=== PATIENT | male | born 1955 | race Caucasian/White ===

== ENCOUNTER → 2018-05-01 15:14 | Outpatient (REF) | payer MEDICARE, SELFPAY ==
[2018-05-01 21:55] LABS: HCT 39.1 % (40.0-50.0); HGB 12.4 g/dL (13.5-17.5); Mean Corp. HGB Concentration 31.7 g/dL (32.0-36.0); Mean Corpuscular Hemoglobin 29.3 pg (27.0-33.0); Mean Corpuscular Volume 92.4 fL (80-95); Mean Platelet Volume 9.9 fL (8.0-11.0); Platelet Count 251 x1000/uL (130-400); RBC 4.23 m/cumm (4.50-6.00); RBC Distribution Width 13.6 % (11.8-14.1); White Blood Cell Count 10.24 k/cumm (4.4-10.8)
[2018-05-01 22:05] LABS: Anion Gap 10.9 mmol/L (3-11); BUN 24 mg/dL (7-18); CO2 24.1 mmol/L (21.0-32.0); CREATININE 1.89 mg/dL (0.70-1.30); Calcium 8.8 mg/dL (8.5-10.1); Chloride 99 mmol/L (98-107); Estimated GFR 35.97 (mL/min/1.73m2); Glucose 214 mg/dL (70-100); Potassium 4.3 mmol/L (3.5-5.1); Sodium 134 mmol/L (136-145); Uric Acid 9.3 mg/dL (3.5-7.2)
== END ==
LOC: NCHCN 15:14
PROVIDERS: PCP Physician Assistant Medical; Visit Provider Specialist/Technologist Athletic Trainer
DX: N18.4 Chronic kidney disease, stage 4 (severe) (principal); M79.676 Pain in unspecified toe(s)
CPT/HCPCS: 80048; 85027; 84550

== ENCOUNTER 2018-06-06 01:09 | Outpatient (CLI) | payer MEDICARE, SELFPAY ==
--- NOTE | 2018-06-06 14:00 | MERGE_ITS ---
*[facility]* *[facility]* [address] [place] [address] Date of study: 06/06/2018 Transthoracic Echocardiography M-mode, complete 2D, complete spectral Doppler, and color Doppler *STUDY CONCLUSIONS* Summary: 1. Procedure narrative: Image quality was poor. Intravenous contrast (Definity) was administered . 2. Left ventricle: The cavity size was normal. Systolic function was hyperdynamic. The estimated ejection fraction was 65-70%. There was no evidence of elevated ventricular filling pressure by Doppler parameters. No evidence of thrombus. 3. Atrial septum: No defect or patent foramen ovale was identified. 4. Pulmonary arteries: Systolic pressure could not be accurately estimated. 5. Inferior vena cava: Poorly visualized. *PATIENT PRESENTATION* Height: 185.4cm ((73in) ) S/D Pressure: 86 / 60 Weight: 176kg ((387.2lb) ) BSA: 3.1m^2 Test start time: 02:00 PM. Test stop time: 03:25 PM. PERFORMING Unknown PERFORMING Nv Hayes Hsieh REFERRING Hayes Cartagena SHIPPING AND RECEIVING Danielle Guillermo *PROCEDURE DATA* Procedure information: This study was interpreted by [facility]. Pertinent images and digital data are archived for permanent storage and are available for subsequent review. No prior study was available for comparison. Study status: Routine. Transthoracic echocardiography. M-mode, complete 2D, complete spectral Doppler, and color Doppler. A Transthoracic Echocardiogram was performed. Scanning was performed from the parasternal, apical, subcostal, and suprasternal notch acoustic windows. Images were obtained using an [employer] SC 2000 cardiac ultrasound machine. Image quality was poor. Intravenous contrast (Definity) was administered by [facility] to enhance delineation of left ventricular endocardial borders. Prior to administration at least two (2) contiguous segments of the left ventricular border were not visualized. Definity amount administered was a total of 3ml. One vial was used. Study completion: The patient tolerated the procedure well. History: PMH: Hypotension, syncope. *CARDIAC ANATOMY* Left ventricle: The cavity size was normal. Systolic function was hyperdynamic. The estimated ejection fraction was 65-70%. No evidence of thrombus. The tissue Doppler parameters were abnormal. Diastolic parameters were normal for age. There was no evidence of elevated ventricular filling pressure by Doppler parameters. Aortic valve: Doppler: VTI ratio of LVOT to aortic valve: 0.72. Valve area (VTI): 2.4cm^2. Indexed valve area (VTI): 0.8cm^2/m^2. Peak velocity ratio of LVOT to aortic valve: 0.75. Valve area (Vmax): 2.5cm^2. Indexed valve area (Vmax): 0.8cm^2/m^2. Mean velocity ratio of LVOT to aortic valve: 0.65. Valve area (Vmean): 2.2cm^2. Indexed valve area (Vmean): 0.7cm^2/m^2. Mean gradient (S): 1.6mm Hg. Peak gradient (S): 2.9mm Hg. Mitral valve: Doppler: There was no evidence for stenosis. There was no significant regurgitation. Valve area by pressure half-time: 2.2cm^2. Indexed valve area by pressure half-time: 0.7cm^2/m^2. Left atrium: The atrium was normal in size. Atrial septum: No defect or patent foramen ovale was identified. Right ventricle: Poorly visualized. Pulmonic valve: Doppler: There was no evidence for stenosis. There was no significant regurgitation. Peak gradient (S): 4mm Hg. Tricuspid valve: Doppler: There was no significant regurgitation. Pulmonary artery: Poorly visualized. Systolic pressure could not be accurately estimated. Right atrium: Poorly visualized. Pericardium: There was no pericardial effusion. Systemic veins: Inferior vena cava: Poorly visualized. Measurements Left ventricle Value Reference LV ID, ED, PLAX 4.5 cm 3.5 - 6.0 LV ID, ES, PLAX 3.0 cm 2.1 - 4.0 LV PW thickness, ED, PLAX 1.3 cm --------- LV e', lateral 0.055 m/sec --------- LV E/e', lateral 7 --------- LV e', medial 0.053 m/sec --------- LV E/e', medial 7 --------- LV e', average 0.054 m/sec --------- LV E/e', average 7 --------- Ventricular septum Value Reference IVS thickness, ED, PLAX 1.3 cm --------- LVOT Value Reference LVOT ID, A-P 2.1 cm --------- LVOT area 3.4 cm^2 --------- LVOT peak velocity, S 0.63 m/sec --------- LVOT mean velocity, S 0.39 m/sec --------- LVOT VTI, S 11.8 cm --------- LVOT peak gradient, S 1.6 mm Hg --------- LVOT mean gradient, S 0.7 mm Hg --------- Stroke volume (SV), LVOT DP 40 ml --------- Stroke index (SV/bsa), LVOT DP 13 ml/m^2 --------- Aortic valve Value Reference Aortic valve peak velocity, S 0.8 m/sec --------- Aortic valve mean velocity, S 0.61 m/sec --------- Aortic valve VTI, S 16.4 cm --------- Aortic mean gradient, S 1.6 mm Hg --------- Aortic peak gradient, S 2.9 mm Hg --------- VTI ratio, LVOT/AV 0.72 --------- Aortic valve area, VTI 2.4 cm^2 --------- Velocity ratio, peak, LVOT/AV 0.75 --------- Aortic valve area, peak velocity 2.5 cm^2 --------- Velocity ratio, mean, LVOT/AV 0.65 --------- Aortic valve area, mean velocity 2.2 cm^2 --------- Aortic valve area/bsa, mean velocity 0.7 cm^2/m^2 --------- Aorta Value Reference Aortic root ID, ED 3.3 cm --------- Ascending aorta ID, A-P, S 3.5 cm --------- Left atrium Value Reference LA ID, A-P, ES 4.7 cm --------- LA ID/bsa, A-P 1.5 cm/m^2 <=2.2 LA/aortic root ratio 1.41 --------- Mitral valve Value Reference Mitral E-wave peak velocity 0.4 m/sec --------- Mitral A-wave peak velocity 0.41 m/sec --------- Mitral deceleration time (H) 341 ms 150 - 230 Mitral pressure half-time 99 ms --------- Mitral E/A ratio, peak 0.97 --------- Mitral valve area, PHT, DP 2.2 cm^2 --------- Pulmonic valve Value Reference Pulmonic peak gradient, S 4 mm Hg --------- Legend: (L) and (H) lonnie values outside specified reference range. I have personally reviewed the images and have reviewed and edited the reported findings. Electronically signed by Reyes Sharp MD 06/06/2018 16:34
== END 2018-06-06 01:29 ==
PROVIDERS: PCP Physician Assistant Medical; Visit Provider Physician Assistant Medical
DX: R55 Syncope and collapse (principal); I95.9 Hypotension, unspecified
CPT/HCPCS: 93306

== ENCOUNTER 2018-08-11 16:42 | Outpatient (REF) | payer MEDICARE, SELFPAY ==
[2018-08-11 19:21] LABS: ALT 41 U/L (12-78); AST 20 U/L (15-37); Albumin 3.7 g/dL (3.4-5.0); Alkaline Phosphatase 107 U/L (46-116); Anion Gap 12.2 mmol/L (3-11); BUN 25 mg/dL (7-18); Bilirubin, Total 0.4 mg/dL (0.2-1.0); CO2 23.8 mmol/L (21.0-32.0); CREATININE 1.86 mg/dL (0.70-1.30); Calcium 9.2 mg/dL (8.5-10.1); Chloride 101 mmol/L (98-107); Estimated GFR 36.64 (mL/min/1.73m2); Glucose 147 mg/dL (70-100); PHOSPHORUS 3.4 mg/dL (2.6-4.7); Sodium 137 mmol/L (136-145); Total Protein 7.7 g/dL (6.4-8.2); Uric Acid 8.1 mg/dL (3.5-7.2)
[2018-08-11 19:46] LABS: Cholesterol 195 mg/dL (50-200); HDL Cholesterol 31 mg/dL (40-60); LDL CHOLESTEROL 138 mg/dL (<100); Triglyceride 158 mg/dL (30-150)
[2018-08-11 20:14] LABS: Abs Immature Grans 0.02 k/cumm (0.0-0.09); Absolute Basophil Count 0.05 k/cumm (0.0-0.2); Absolute Lymphocyte Count 1.98 k/cumm (1.2-3.4); Absolute Monocyte Count 0.63 k/cumm (0.11-0.7); Absolute Neutrophil Count 5.41 k/cumm (1.2-6.7); Basophils % 0.6; Eosinophils % 3.6; HGB 13.2 g/dL (13.5-17.5); Immature Grans % 0.2; Lymphocytes % 23.6; Mean Corp. HGB Concentration 31.4 g/dL (32.0-36.0); Mean Corpuscular Hemoglobin 28.3 pg (27.0-33.0); Mean Corpuscular Volume 90.1 fL (80-95); Mean Platelet Volume 10.8 fL (8.0-11.0); Monocytes % 7.5; Neutrophils % 64.5; Platelet Count 219 x1000/uL (130-400); RBC 4.66 m/cumm (4.50-6.00); RBC Distribution Width 14.8 % (11.8-14.1); White Blood Cell Count 8.39 k/cumm (4.4-10.8)
[2018-08-14 09:41] LABS: Parathyroid Hormone,Intact 78 pg/ml (19-88)
== END 2018-08-11 17:02 ==
LOC: NCHCN 16:42
PROVIDERS: PCP Physician Assistant Medical; Visit Provider Physician Assistant Medical
DX: N18.4 Chronic kidney disease, stage 4 (severe) (principal); E78.5 Hyperlipidemia, unspecified
CPT/HCPCS: 80053; 80061; 83721; 83970; 84100; 84550; 85025

== ENCOUNTER 2019-01-31 14:44 | Outpatient (REF) | payer MEDICARE, SELFPAY ==
[2019-01-31 21:05] LABS: ALT 25 U/L (12-78); AST 16 U/L (15-37); Albumin 3.5 g/dL (3.4-5.0); Alkaline Phosphatase 123 U/L (46-116); Anion Gap 12.1 mmol/L (3-11); BUN 19 mg/dL (7-18); Bilirubin, Total 0.5 mg/dL (0.2-1.0); CO2 25.9 mmol/L (21.0-32.0); CREATININE 1.37 mg/dL (0.70-1.30); Calcium 8.8 mg/dL (8.5-10.1); Chloride 102 mmol/L (98-107); Cholesterol 188 mg/dL (50-200); Estimated GFR 52.15 (mL/min/1.73m2); Glucose 100 mg/dL (70-100); HDL Cholesterol 30 mg/dL (40-60); LDL CHOLESTEROL 121 mg/dL (<100); Potassium 4.3 mmol/L (3.5-5.1); Sodium 140 mmol/L (136-145); Total Protein 7.5 g/dL (6.4-8.2); Triglyceride 148 mg/dL (30-150)
== END 2019-01-31 15:04 ==
LOC: NCHCN 14:44
PROVIDERS: PCP Physician Assistant Medical; Visit Provider Physician Assistant Medical
DX: E78.5 Hyperlipidemia, unspecified (principal); E11.9 Type 2 diabetes mellitus without complications
CPT/HCPCS: 80053; 80061; 83721

== ENCOUNTER 2019-07-18 14:59 | Outpatient (REF) | payer MEDICARE, SELFPAY ==
[2019-07-18 20:12] LABS: Anion Gap 8.1 mmol/L (3-11); BUN 24 mg/dL (7-18); CO2 27.9 mmol/L (21.0-32.0); CREATININE 1.49 mg/dL (0.70-1.30); Calcium 8.7 mg/dL (8.5-10.1); Chloride 106 mmol/L (98-107); Estimated GFR 47.19 (mL/min/1.73m2); Glucose 96 mg/dL (70-100); Potassium 4.3 mmol/L (3.5-5.1); Sodium 142 mmol/L (136-145)
== END 2019-07-18 15:19 ==
LOC: NCHCN 14:59
PROVIDERS: PCP Physician Assistant Medical; Visit Provider Physician Assistant Medical
DX: E11.9 Type 2 diabetes mellitus without complications (principal); N18.4 Chronic kidney disease, stage 4 (severe)
CPT/HCPCS: 80048

== ENCOUNTER 2020-01-18 12:52 | Outpatient (REF) | payer MEDICARE, SELFPAY ==
[2020-01-18 19:30] LABS: Anion Gap 11.1 mmol/L (3-11); BUN 25 mg/dL (7-18); CO2 25.9 mmol/L (21.0-32.0); CREATININE 1.67 mg/dL (0.70-1.30); Calculated LDL 122 mg/dL (<100); Chloride 102 mmol/L (98-107); Cholesterol 181 mg/dL (<200); Estimated GFR 41.37 (mL/min/1.73m2); Glucose 158 mg/dL (74-106); HDL Cholesterol 31 mg/dL (40-60); Potassium 4.8 mmol/L (3.5-5.1); Sodium 139 mmol/L (136-145); Triglyceride 142 mg/dL (<150)
[2020-01-18 19:35] LABS: Hemoglobin A1C 6.6 % (3.8-5.6)
== END 2020-01-18 13:12 ==
LOC: NCHCN 12:52
PROVIDERS: PCP Physician Assistant Medical; Visit Provider Nurse Practitioner Family
DX: E11.9 Type 2 diabetes mellitus without complications (principal); E78.5 Hyperlipidemia, unspecified
CPT/HCPCS: 80048; 80061; 83036

== ENCOUNTER 2020-07-14 19:02 | Outpatient (REF) | payer MEDICARE, SELFPAY ==
[2020-07-14 20:23] LABS: ALT 38 U/L (16-63); AST 28 U/L (15-37); Albumin 3.3 g/dL (3.4-5.0); Alkaline Phosphatase 142 U/L (46-116); Anion Gap 11.1 mmol/L (3-11); BUN 14 mg/dL (7-18); Bilirubin, Total 0.5 mg/dL (0.2-1.0); CO2 23.9 mmol/L (21.0-32.0); CREATININE 1.47 mg/dL (0.70-1.30); Chloride 102 mmol/L (98-107); Estimated GFR 47.78 (mL/min/1.73m2); Glucose 163 mg/dL (74-106); Potassium 4.6 mmol/L (3.5-5.1); Sodium 137 mmol/L (136-145); Total Protein 7.5 g/dL (6.4-8.2)
== END 2020-07-14 19:22 ==
LOC: NCHCN 19:02
PROVIDERS: PCP Physician Assistant Medical; Visit Provider Physician Assistant Medical
DX: N18.4 Chronic kidney disease, stage 4 (severe) (principal); I12.9 Hypertensive chronic kidney disease with stage 1 through stage 4 chronic kidney disease, or unspecified chronic kidney disease
CPT/HCPCS: 80053

== ENCOUNTER 2021-02-16 18:01 | Outpatient (REF) | payer MEDICARE, SELFPAY ==
[2021-02-16 15:16] LABS: Abs Immature Grans 0.01 10^3/uL (0.0-0.06); Absolute Basophil Count 0.05 10^3/uL (0.0-0.2); Absolute Eosinophil Count 0.17 10^3/uL (0.0-0.7); Absolute Lymphocyte Count 1.59 10^3/uL (1.2-3.4); Absolute Monocyte Count 0.47 10^3/uL (0.1-0.8); Absolute Neutrophil Count 4.51 10^3/uL (1.2-6.7); Basophils % 0.7; Eosinophils % 2.5; HCT 41.4 % (40.0-50.0); HGB 13.2 g/dL (13.5-17.5); Immature Grans % 0.1; Lymphocytes % 23.4; MCH 28.8 pg (27.0-33.0); MCHC 31.9 % (32.0-36.0); MCV 90.4 fL (80-95); MPV 10.4 fL (8.0-11.0); Monocytes % 6.9; Neutrophils % 66.4; Nucleated RBC 0 %; Platelet Count 207 10^3/uL (130-400); RBC 4.58 10^6/uL (4.36-5.78); RDW 14.2 % (11.8-14.1); RDW-SD 47.4 fL
[2021-02-16 15:28] LABS: ALT 25 U/L (16-63); AST 16 U/L (15-37); Albumin 3.7 g/dL (3.4-5.0); Alkaline Phosphatase 138 U/L (46-116); Anion Gap 11.1 mmol/L (3-11); BUN 30 mg/dL (7-18); Bilirubin, Total 0.7 mg/dL (0.2-1.0); CO2 21.9 mmol/L (21.0-32.0); CREATININE 2.1 mg/dL (0.70-1.30); Calcium 9.2 mg/dL (8.5-10.1); Chloride 103 mmol/L (98-107); Estimated GFR 31.66 (mL/min/1.73m2); Glucose 219 mg/dL (74-106); Sodium 136 mmol/L (136-145)
[2021-02-16 15:57] LABS: Calculated LDL 127 mg/dL (<100); Cholesterol 195 mg/dL (<200); HDL Cholesterol 30 mg/dL (40-60); Triglyceride 190 mg/dL (<150)
== END 2021-02-16 18:02 | disposition home or self-care (01) ==
LOC: NCHCN 18:01
PROVIDERS: PCP Physician Assistant Medical; Visit Provider Physician Assistant Medical
DX: E78.5 Hyperlipidemia, unspecified (principal); D64.9 Anemia, unspecified
CPT/HCPCS: 80053; 80061; 85025

== ENCOUNTER 2021-02-24 11:28 | Outpatient (REF) | payer MEDICARE, SELFPAY ==
[2021-02-24 19:58] LABS: Anion Gap 13.2 mmol/L (3-11); BUN 18 mg/dL (7-18); CO2 21.8 mmol/L (21.0-32.0); CREATININE 1.6 mg/dL (0.70-1.30); Calcium 8.7 mg/dL (8.5-10.1); Chloride 105 mmol/L (98-107); Estimated GFR 43.33 (mL/min/1.73m2); Glucose 152 mg/dL (74-106); Sodium 140 mmol/L (136-145)
== END 2021-02-24 11:29 | disposition home or self-care (01) ==
LOC: NCHCN 11:28
PROVIDERS: PCP Physician Assistant Medical; Visit Provider Physician Assistant Medical
DX: I12.9 Hypertensive chronic kidney disease with stage 1 through stage 4 chronic kidney disease, or unspecified chronic kidney disease (principal); N18.4 Chronic kidney disease, stage 4 (severe); I10 Essential (primary) hypertension; Z00.00 Encounter for general adult medical examination without abnormal findings
CPT/HCPCS: 80048

== ENCOUNTER 2021-03-30 22:10 | Outpatient (REF) | payer MEDICARE, SELFPAY ==
[2021-03-30 22:36] LABS: Anion Gap 10.8 mmol/L (3-11); BUN 17 mg/dL (7-18); CO2 24.2 mmol/L (21.0-32.0); CREATININE 1.5 mg/dL (0.70-1.30); Calcium 8.6 mg/dL (8.5-10.1); Chloride 103 mmol/L (98-107); Estimated GFR 46.54 (mL/min/1.73m2); Glucose 120 mg/dL (74-106); Sodium 138 mmol/L (136-145)
== END 2021-03-30 22:11 | disposition home or self-care (01) ==
LOC: NCHCN 22:10
PROVIDERS: PCP Physician Assistant Medical; Visit Provider Physician Assistant Medical
DX: E87.5 Hyperkalemia (principal); I10 Essential (primary) hypertension
CPT/HCPCS: 80048

== ENCOUNTER 2021-12-01 16:45 | Outpatient (REF) | payer MEDICARE, SELFPAY ==
[2021-12-01 19:46] LABS: Hemoglobin A1C 8.4 % (<5.7)
[2021-12-01 19:50] LABS: Anion Gap 8.3 mmol/L (3-11); BUN 17 mg/dL (7-18); CO2 25.7 mmol/L (21.0-32.0); CREATININE 1.6 mg/dL (0.70-1.30); Calcium 8.9 mg/dL (8.5-10.1); Chloride 102 mmol/L (98-107); Glucose 218 mg/dL (74-106); Sodium 136 mmol/L (136-145)
== END 2021-12-01 16:46 | disposition home or self-care (01) ==
LOC: NCHCN 16:45
PROVIDERS: PCP Physician Assistant Medical; Visit Provider Physician Assistant Medical
DX: E11.9 Type 2 diabetes mellitus without complications (principal)
CPT/HCPCS: 80048; 83036

== ENCOUNTER 2022-06-01 22:24 | Outpatient (REF) | payer MEDICARE, SELFPAY ==
[2022-06-01 19:04] LABS: Hemoglobin A1C 6.9 % (<5.7)
[2022-06-01 19:17] LABS: ALT 29 U/L (16-63); AST 15 U/L (15-37); Albumin 3.7 g/dL (3.4-5.0); Alkaline Phosphatase 137 U/L (46-116); Anion Gap 9.7 mmol/L (3-11); BUN 19 mg/dL (7-18); Bilirubin, Total 0.7 mg/dL (0.2-1.0); CO2 26.3 mmol/L (21.0-32.0); CREATININE 1.4 mg/dL (0.70-1.30); Calcium 9.6 mg/dL (8.5-10.1); Calculated LDL 130 mg/dL (<100); Chloride 102 mmol/L (98-107); Cholesterol 195 mg/dL (<200); Estimated GFR 54.41 (mL/min/1.73m2); Glucose 167 mg/dL (74-106); HDL Cholesterol 36 mg/dL (40-60); Sodium 138 mmol/L (136-145); Total Protein 8.8 g/dL (6.4-8.2); Triglyceride 146 mg/dL (<150)
== END 2022-06-01 22:25 | disposition home or self-care (01) ==
LOC: NCHCN 22:24
PROVIDERS: PCP Physician Assistant Medical; Visit Provider Physician Assistant Medical
DX: E78.5 Hyperlipidemia, unspecified (principal); E11.9 Type 2 diabetes mellitus without complications
CPT/HCPCS: 80053; 80061; 83036

== ENCOUNTER 2022-09-29 21:09 | Outpatient (REF) | payer MEDICARE, SELFPAY ==
[2022-09-29 23:03] LABS: ALT 23 U/L (16-63); AST 18 U/L (15-37); Albumin 3.7 g/dL (3.4-5.0); Alkaline Phosphatase 152 U/L (46-116); Anion Gap 11.5 mmol/L (3-11); BUN 20 mg/dL (7-18); Bilirubin, Total 0.6 mg/dL (0.2-1.0); CO2 24.5 mmol/L (21.0-32.0); CREATININE 1.4 mg/dL (0.70-1.30); Calcium 9.1 mg/dL (8.5-10.1); Calculated LDL 124 mg/dL (<100); Chloride 101 mmol/L (98-107); Cholesterol 183 mg/dL (<200); Estimated GFR 54.41 (mL/min/1.73m2); Glucose 147 mg/dL (74-106); HDL Cholesterol 37 mg/dL (40-60); Potassium 4.3 mmol/L (3.5-5.1); Sodium 137 mmol/L (136-145); Total Protein 8.4 g/dL (6.4-8.2); Triglyceride 110 mg/dL (<150)
[2022-09-30 14:49] LABS: Hemoglobin A1C 7.5 % (<5.7)
== END 2022-09-29 21:10 | disposition home or self-care (01) ==
LOC: NCHCN 21:09
PROVIDERS: PCP Physician Assistant Medical; Visit Provider Physician Assistant Medical
DX: E78.5 Hyperlipidemia, unspecified (principal); E11.9 Type 2 diabetes mellitus without complications
CPT/HCPCS: 80053; 80061; 83036

== ENCOUNTER 2022-11-02 08:56 | Emergency (ER) | payer MEDICARE, SELFPAY ==
[2022-11-02 08:30] VITALS: BP 142/92; PULSE 87; RESP 22; TEMP 36.4; O2SAT 94
--- NOTE | 2022-11-02 08:44 | ED.GENADUL_ITS ---
Discharge Plan Disposition Patient Disposition: Home Condition: Improving Discharge Details Clinical Impression: Muscle spasm of back, Chronic back pain Primary Care Provider: Hayes Cartagena ED Provider: Colin Cárdenas Home Meds and New Rx's Prescriptions: New cyclobenzaprine 5 mg tablet 5 mg PO TID PRN (Reason: muscle spasm) Qty: 20 0RF Continued pioglitazone [Actos] 15 MG tablet 30 mg PO DAILY triamcinolone acetonide 15 GM cream 15 gm Topical DAILY gabapentin [Neurontin] 300 MG capsule 300 mg PO BID furosemide [Lasix] 20 MG tablet See Rx Instructions .ROUTE .COMPLEX Rx Instructions: Take 1/2 tab PO BID Loratadine 10 MG TAB.RAPDIS 10 mg PO DAILY Patient Comments: no longer taking naproxen 250 MG tablet 500 mg PO BID glipizide 10 mg tablet extended release 24hr 10 mg PO DAILY Patient Comments: TAKE 1 TABLET BY MOUTH EVERY DAY Ozempic 0.25 mg or 0.5 mg (2 mg/3 mL) pen injector See Rx Instructions .ROUTE .COMPLEX Patient Comments: Inject 1/4 mg subcutaneously once a week for 4 weeks, then increase to 0.5mg once weekly; TO REPLACE JARDIANCE Rx Instructions: Inject 1/4 mg subcutaneously once a week for 4 weeks, then increase to 0.5mg once weekly; TO REPLACE JARDIANCE atorvastatin 40 mg tablet 40 mg PO QHS Patient Comments: TAKE 1 TABLET BY MOUTH EVERY NIGHT celecoxib 100 mg capsule 100 mg PO BID PRN Patient Comments: TAKE 1 CAPSULE BY MOUTH TWICE DAILY NEEDED FOR PAIN Jardiance 10 mg tablet 10 mg PO DAILY Patient Comments: TAKE 1 TABLET BY MOUTH EVERY DAY Discontinued simvastatin [Zocor] 20 MG tablet 20 mg PO DAILY Patient Comments: no longer taking, switched to other med lisinopril 10 MG tablet 10 mg PO DAILY Patient Comments: no longer taking fluticasone propionate 16 GM spray,suspension 2 puff NS DAILY Patient Comments: no longer taking cyclobenzaprine 5 MG tablet 5 mg PO HS Patient Comments: no longer taking Discharge Instructions Instructions: Muscle Spasm (ED), Back Pain (ED) Additional Instructions: Please continue to preform activity as tolerated. Bedrest typically will make your back pain worse so continue to perform your normal activities to your best ability. Continue to take your pain medication as prescribed by your primary care provider and you may also take the prescribed cyclobenzaprine/Flexeril as needed for return of your muscular spasms. You may also take [id number] acetaminophen on top of your normal prescribed medications. If you develop any new or significant worsening of symptoms feel free to return the emergency department for reassessment otherwise follow-up with your primary care provider for recheck of your back pain in 1 week. Referrals: Hayes Cartagena PA [Primary Care Provider] - 1 week (Recheck of back pain) Discharge Data Discharge Date/Time-TO BE ENTERED AT DEPARTURE: 11/02/22 12:50 Medical Decision Making Patient presenting to the emergency department via EMS for chief complaint of severe muscular spasms of the back. Patient reports Tuesday when attempting to get a bed he started having spasms to his back. Patient states history of chronic back pain, hip pain, and diabetes. Has not taken any of his meds this morning due to inability to get out of bed. Patient denies fever chills, neurological deficits, changes in bowel or bladder function, chest pain shortnes s of breath. Patient is significantly overweight/obese and in moderate to severe pain at the moment of presentation to emergency department. Physical exam deferred initially as patient appears overall stable without any severe life-threatening distress. We will treat patient's pain discomfort and spasms with Tylenol, ketorolac, and Valium and will reassess. Given patient states diabetes and that he has not taken his medication we will check his fingerstick glucose. Otherwise at this time I do not feel that advanced imaging is needed until physical exam is performed. Was able to reassess patient after medications were given and patient having significant improvement of overall symptoms. Patient had more reproducible pain with some radiation into right hip with palpation of the mid lumbar paraspinal tissue while he reported some midline tenderness no palpable tenderness was perceived. Patient was able to get up and walk and had no severe weakness or dysfunction of lower extremities beyond his baseline which he states he has difficult time walking and uses a cane or walker at baseline. I do feel that patient is safe to discharge and follow-up with primary care per recheck back pain. Patient was prescribed Flexeril to use as needed and encouraged to continue to take Celebrex and or acetaminophen as needed. After discussion of diagnosis and plan of care patient has no further needs, questions, or concerns and states clear understanding to return to the emergency department for any worsening symptoms. this documentation was generated using [employer] dictation system, please disregard any oddities of phrase or misspellings. Lab Data Lab results reviewed: Yes I reviewed the patient's lab results. Lab results narrative: Nonworrisome fingerstick glucose 160s HPI General Mode of arrival: EMS . Date/Time Provider Initiated Documentation: 11/02/22 09:01 . Limitations to Documentation: no limitations . Information obtained by: patient, EMS and RN notes reviewed . History of Present Illness 67 year old M presents to the emergency department with the chief complaint of Severe back spasms, described as moderate and severe, with intensity rated at 8. Quality is described as aching and sharp, and is localized to the back. Patient extremity (Right). Patient started experiencing this day(s) (5) and it has been constant. No relieving factors improve symptom(s), Movement worsens symptoms . Patient notes no other symptoms.. Patient did receive the following treatments prior to arrival, none Related Data Home Medications Medication Instructions Recorded Confirmed Loratadine 10 mg PO DAILY 12/12/17 furosemide 20 mg tablet (Lasix) See Rx Instructions .Route .COMPLEX 12/12/17 11/02/22 gabapentin 300 mg capsule 300 mg PO BID 12/12/17 11/02/22 (Neurontin) pioglitazone 15 mg tablet (Actos) 30 mg PO DAILY 12/12/17 11/02/22 triamcinolone acetonide 0.1 % 15 gm topical DAILY 12/12/17 11/02/22 topical cream naproxen 250 mg tablet 500 mg PO BID 03/02/18 11/02/22 atorvastatin 40 mg tablet 40 mg PO QHS 11/02/22 11/02/22 celecoxib 100 mg capsule 100 mg PO BID PRN 11/02/22 11/02/22 cyclobenzaprine 5 mg tablet 5 mg PO TID PRN muscle spasm #20 11/02/22 tabs empagliflozin 10 mg tablet 10 mg PO DAILY 11/02/22 11/02/22 (Jardiance) glipizide 10 mg tablet, extended 10 mg PO DAILY 11/02/22 11/02/22 release 24 hr semaglutide 0.25 mg or 0.5 mg (2 See Rx Instructions .Route .COMPLEX 11/02/22 11/02/22 mg/3 mL) subcutaneous pen injector (Ozempic) Previous Rx's Medication Instructions Recorded cyclobenzaprine 5 mg tablet 5 mg PO TID PRN muscle spasm #20 11/02/22 tabs Allergies Allergy/AdvReac Type Severity Reaction Status Date / Time environmental Allergy Mild Rhinitis Uncoded 11/02/22 08:40 General Stated Complaint: Nk/Back Pain MIRIAM: 3 Review of Systems Constitutional Constitutional: Denies chills and Denies fever(s) Cardiovascular Cardiovascular: Denies chest pain Respiratory Respiratory: Denies cough Gastrointestinal Gastrointestinal: Denies abdominal pain, Denies change in bowel habits, Denies diarrhea, Denies nausea and Denies vomiting Genitourinary Genitourinary: Denies difficulty urinating and Denies urinary incontinence Musculoskeletal Musculoskeletal: Reports as per HPI and Reports back pain Neurologic Neurologic: Denies sensory deficit PFSH All Active Problems (Updated 11/02/22 @ 11:34 by Colin Cárdenas NP) Muscle spasm of back (Acute) Chronic back pain (Acute) Medical History Allergic rhinitis Chronic back pain Diabetes mellitus Elevated serum creatinine HTN (hypertension) Hyperlipidemia Obesity BEV (obstructive sleep apnea) Osteoarthritis Seborrheic dermatitis Tobacco abuse Social History Smoking/Tobacco Use Status: Former Tobacco Use Smoking risk assessment performed?: Yes Alcohol Intake: never Drug use: Never Substance use type: does not use Do you feel safe at home: Yes Do you feel safe in your relationship?: Yes Exam Const General: cooperative and no acute distress Orientation: alert, awake and oriented x3 Neck Neck: normal visual inspection, full ROM and no meningeal signs Resp Effort & Inspection: normal respiratory effort, able to speak in complete sentences and no respiratory distress Auscultation: clear to auscultation bilaterally Cardio Rate: regular rate Rhythm: regular rhythm Heart Sounds: S1 normal and S2 normal Back/Spine/Pelvis Thoracic/Lumbar Spine: pain with thoraco-lumbar ROM, paraspinal tenderness, thoraco-lumbar ROM limited and No lumbar spinal tenderness Pelvis: no pain with anterior-posterior compression and no pain with lateral co mpression Neuro General: patient alert, patient awake, patient oriented x3, moves all extremities and no focal motor deficits Course Vital Signs Vital signs: Vital Signs Temperature 36.4 C L 11/02/22 08:30 Pulse 87 11/02/22 08:30 Respiratory Rate 22 11/02/22 08:30 Blood Pressure 142/92 H 11/02/22 08:30 Pulse Oximetry 94 11/02/22 08:30 Temperature 36.4 C L 11/02/22 08:30 Temperature Source Temporal Artery Scan 11/02/22 08:30 Pulse 87 11/02/22 08:30 Respiratory Rate 22 11/02/22 08:30 Respiratory Effort Normal 11/02/22 08:39 Blood Pressure 142/92 H 11/02/22 08:30 Blood Pressure Position Supine 11/02/22 08:30 Pulse Oximetry 94 11/02/22 08:30 Oxygen Delivery Method Room Air 11/02/22 08:30 Oxygen Flow Rate 0 11/02/22 08:30 Pain Level 8 11/02/22 08:39
[2022-11-02] MEDS: Ketorolac 15 MG/ML VIAL IVP (08:55)
[2022-11-02] MEDS: ACETAMINOPHEN 1,000 MG/100 ML BTL 400 MG IVPB (08:55)
[2022-11-02] MEDS: diazePAM 10 MG/2 ML SYR 5 MG IVP (08:56)
== END 2022-11-02 12:50 | disposition home or self-care (01) ==
PROVIDERS: Emergency Provider Nurse Practitioner Family; PCP Physician Assistant Medical
DX: M62.830 Muscle spasm of back (principal); E11.9 Type 2 diabetes mellitus without complications; E66.9 Obesity, unspecified; M25.551 Pain in right hip; I10 Essential (primary) hypertension; G89.29 Other chronic pain
CPT/HCPCS: 96374; 96375; 99284; J0131; J1885; J3360

== ENCOUNTER 2022-11-29 13:07 | Outpatient (CLI) | payer MEDICARE, SELFPAY ==
--- NOTE | 2022-11-29 | DI.RAD_ITS ---
Exam(s) XR LUMBAR SPINE COMPLETE EXAM: XR LUMBAR SPINE COMPLETE CLINICAL HISTORY: ACUTE LOW BACK PAIN, M54.59,POINT TENDER OVER LOWER LUMBAR SPINOUS PROCESSE. TECHNIQUE: 2D digital imaging was performed. COMPARISON: No exams were available for comparison FINDINGS: Five views: No evidence of acute fracture nor listhesis. No obvious pars defects. Disc spaces exhibit normal he ight. Osteophytes noted at L3-4 level and L1-2 level. No scoliosis. Moderate degenerative changes in the facet joints. No osseous lesions. Vascular calcification in the abdominal aorta and iliac arteries noted IMPRESSION: No acute osseous abnormalities evident. DATA REPOSITORY: RADIATION DOSE DELIVERED:
== END 2022-11-29 13:27 ==
LOC: DI 13:08
PROVIDERS: PCP Physician Assistant Medical; Visit Provider Family Medicine
DX: M54.59 Other low back pain (principal); M47.816 Spondylosis without myelopathy or radiculopathy, lumbar region
CPT/HCPCS: 72110

== ENCOUNTER 2023-01-26 16:44 | Outpatient (REF) | payer MEDICARE, SELFPAY ==
[2023-01-26 19:48] LABS: Anion Gap 8.2 mmol/L (3-11); BUN 19 mg/dL (7-18); CO2 26.8 mmol/L (21.0-32.0); CREATININE 1.5 mg/dL (0.70-1.30); Calcium 9.1 mg/dL (8.5-10.1); Chloride 103 mmol/L (98-107); Estimated GFR 50.08 (mL/min/1.73m2); Glucose 93 mg/dL (74-106); Potassium 4.1 mmol/L (3.5-5.1); Sodium 138 mmol/L (136-145); Uric Acid 7.5 mg/dL (3.5-7.2)
[2023-01-26 19:59] LABS: Hemoglobin A1C 6.6 % (<5.7)
[2023-01-26 20:24] LABS: HCT 53.7 % (40.0-50.0); HGB 17.1 g/dL (13.5-17.5); MCH 28.8 pg (27.0-33.0); MCHC 31.8 % (32.0-36.0); MCV 91 fL (80-95); MPV 10.6 fL (8.0-11.0); Platelet Count 146 10^3/uL (130-400); RBC 5.93 10^6/uL (4.36-5.78); RDW 14.3 % (11.8-14.1); RDW-SD 47.8 fL; WBC 5.14 10^3/uL (4.4-10.8)
== END 2023-01-26 16:45 | disposition home or self-care (01) ==
LOC: NCHCN 16:44
PROVIDERS: PCP Physician Assistant Medical; Visit Provider Physician Assistant Medical
DX: I10 Essential (primary) hypertension (principal); N18.4 Chronic kidney disease, stage 4 (severe); K76.0 Fatty (change of) liver, not elsewhere classified; E11.9 Type 2 diabetes mellitus without complications; R79.89 Other specified abnormal findings of blood chemistry
CPT/HCPCS: 80048; 85027; 83036; 84550

== ENCOUNTER → 2023-06-16 11:25 | Outpatient (CLI) | payer MEDICARE, SELFPAY ==
--- NOTE | 2023-06-16 10:57 | DI.RAD_ITS ---
Exam(s) XR HIP PELVIS ADULT BL EXAM: XR HIP PELVIS ADULT BL CLINICAL HISTORY: MYALGIA-M79.18. TECHNIQUE: 2D digital imaging was performed. COMPARISON: CR LUMBAR SPINE COMPLETE from 02/24/2018 CR BILATERAL HIPS ADULT from 02/24/2018 FINDINGS: Four views. There is no evidence of acute pelvic nor hip fracture. Again noted are advanced degenerative changes in both hips with [id number] narrowing again noted an d degenerative subarticular cysts. No osseous lesions evident. IMPRESSION: Advanced degenerative changes of both hips again noted. DATA REPOSITORY: RADIATION DOSE DELIVERED:
== END ==
PROVIDERS: PCP Physician Assistant Medical; Visit Provider Preventive Medicine Occupational Medicine
DX: M79.18 Myalgia, other site (principal); M16.0 Bilateral primary osteoarthritis of hip
CPT/HCPCS: 73521

== ENCOUNTER 2023-08-09 17:41 | Outpatient (REF) | payer MEDICARE, SELFPAY ==
[2023-08-09 19:21] LABS: ALT 19 U/L (16-63); AST 16 U/L (15-37); Albumin 3.5 g/dL (3.4-5.0); Alkaline Phosphatase 159 U/L (46-116); Anion Gap 11.3 mmol/L (3-11); BUN 13 mg/dL (7-18); Bilirubin, Total 0.8 mg/dL (0.2-1.0); CO2 23.7 mmol/L (21.0-32.0); CREATININE 1.6 mg/dL (0.70-1.30); Calcium 9.1 mg/dL (8.5-10.1); Calculated LDL 87 mg/dL (<100); Chloride 102 mmol/L (98-107); Cholesterol 141 mg/dL (<200); Estimated GFR 46.06 (mL/min/1.73m2); Glucose 116 mg/dL (74-106); HDL Cholesterol 34 mg/dL (40-60); Potassium 4.6 mmol/L (3.5-5.1); Sodium 137 mmol/L (136-145); Total Protein 8.4 g/dL (6.4-8.2); Triglyceride 103 mg/dL (<150)
[2023-08-09 19:36] LABS: COMMENT (LAB VIEW ONLY) 234.28 mg/dL; PROTEIN 10.5 mg/dL; Prot/Crea Ur Ratio 0.04
== END 2023-08-09 17:42 | disposition home or self-care (01) ==
LOC: NCHCN 17:41
PROVIDERS: PCP Physician Assistant Medical; Visit Provider Physician Assistant Medical
DX: N18.4 Chronic kidney disease, stage 4 (severe) (principal)
CPT/HCPCS: 80053; 80061; 82565; 84156

== ENCOUNTER 2023-12-14 15:18 | Outpatient (REF) | payer MEDICARE, SELFPAY ==
[2023-12-14 20:42] LABS: Abs Immature Grans 0.02 10^3/uL (0.0-0.06); Absolute Basophil Count 0.08 10^3/uL (0.0-0.2); Absolute Eosinophil Count 0.23 10^3/uL (0.0-0.7); Absolute Lymphocyte Count 2.04 10^3/uL (1.2-3.4); Absolute Monocyte Count 0.39 10^3/uL (0.1-0.8); Absolute Neutrophil Count 3.86 10^3/uL (1.2-6.7); Basophils % 1.2; Eosinophils % 3.5; HCT 42.8 % (40.0-50.0); HGB 13.6 g/dL (13.5-17.5); Immature Grans % 0.3; Lymphocytes % 30.8; MCH 28.6 pg (27.0-33.0); MCHC 31.8 % (32.0-36.0); MCV 90 fL (80-95); MPV 9.6 fL (8.0-11.0); Monocytes % 5.9; Neutrophils % 58.3; Platelet Count 208 10^3/uL (130-400); RBC 4.76 10^6/uL (4.36-5.78); RDW-SD 45.9 fL; WBC 6.62 10^3/uL (4.4-10.8)
[2023-12-14 21:01] LABS: ALT 18 U/L (16-63); AST 17 U/L (15-37); Albumin 3.1 g/dL (3.4-5.0); Alkaline Phosphatase 146 U/L (46-116); Amylase 19 U/L (25-115); Anion Gap 11.9 mmol/L (3-11); BUN 12 mg/dL (7-18); Bilirubin, Total 0.8 mg/dL (0.2-1.0); CO2 23.1 mmol/L (21.0-32.0); CREATININE 1.4 mg/dL (0.70-1.30); Calcium 8.7 mg/dL (8.5-10.1); Chloride 104 mmol/L (98-107); Estimated GFR 54.07 (mL/min/1.73m2); Glucose 82 mg/dL (74-106); Lipase 16 U/L (16-77); Sodium 139 mmol/L (136-145); Total Protein 7.5 g/dL (6.4-8.2); Uric Acid 7.4 mg/dL (3.5-7.2)
[2023-12-14 21:15] LABS: Hemoglobin A1C 5.9 % (<5.7)
== END 2023-12-14 15:19 | disposition home or self-care (01) ==
LOC: NCHCN 15:18
PROVIDERS: PCP Physician Assistant Medical; Visit Provider Physician Assistant Medical
DX: R10.13 Epigastric pain (principal); E11.9 Type 2 diabetes mellitus without complications; M79.671 Pain in right foot
CPT/HCPCS: 80053; 83690; 82150; 83036; 84550; 85025

== ENCOUNTER 2024-02-07 16:29 | Outpatient (REF) | payer MEDICARE, SELFPAY ==
[2024-02-07 16:30] LABS: Anion Gap 15.4 mmol/L (3-11); BUN 11 mg/dL (7-18); CO2 20.6 mmol/L (21.0-32.0); CREATININE 1.4 mg/dL (0.70-1.30); Calcium 8.5 mg/dL (8.5-10.1); Chloride 102 mmol/L (98-107); Estimated GFR 54.07 (mL/min/1.73m2); Glucose 145 mg/dL (74-106); Potassium 4.1 mmol/L (3.5-5.1); Sodium 138 mmol/L (136-145); Uric Acid 5.3 mg/dL (3.5-7.2)
== END 2024-02-07 16:30 | disposition home or self-care (01) ==
LOC: NCHCN 16:29
PROVIDERS: PCP Physician Assistant Medical; Visit Provider Physician Assistant Medical
DX: N18.9 Chronic kidney disease, unspecified (principal); R79.89 Other specified abnormal findings of blood chemistry
CPT/HCPCS: 80048; 84550

== ENCOUNTER 2024-08-01 16:00 | Outpatient (REF) | payer MEDICARE, SELFPAY ==
[2024-08-01 20:22] LABS: Abs Immature Grans 0.04 10^3/uL (0.0-0.06); Absolute Basophil Count 0.08 10^3/uL (0.0-0.2); Absolute Lymphocyte Count 1.92 10^3/uL (1.2-3.4); Absolute Monocyte Count 0.52 10^3/uL (0.1-0.8); Absolute Neutrophil Count 6.31 10^3/uL (1.2-6.7); Basophils % 0.9 %; Eosinophils % 2.2 %; HCT 47.3 % (40.0-50.0); Immature Grans % 0.4 %; Lymphocytes % 21.2 %; MCH 30.3 pg (27.0-33.0); MCHC 31.7 % (32.0-36.0); MCV 96 fL (80-95); MPV 10.2 fL (8.0-11.0); Monocytes % 5.7 %; Neutrophils % 69.6 %; Platelet Count 230 10^3/uL (130-400); RBC 4.95 10^6/uL (4.36-5.78); RDW 13.6 % (11.8-14.1); RDW-SD 47.8 fL; WBC 9.07 10^3/uL (4.4-10.8)
[2024-08-01 20:38] LABS: ALT 28 U/L (16-63); AST 19 U/L (15-37); Albumin 3.5 g/dL (3.4-5.0); Alkaline Phosphatase 196 U/L (46-116); Anion Gap 13.9 mmol/L (3-11); BUN 18 mg/dL (7-18); Bilirubin, Total 0.71 mg/dL (0.2-1.0); CO2 21.1 mmol/L (21.0-32.0); CREATININE 1.6 mg/dL (0.70-1.30); Calcium 9.6 mg/dL (8.5-10.1); Calculated LDL 117 mg/dL (<100); Chloride 102 mmol/L (98-107); Cholesterol 177 mg/dL (<200); Estimated GFR 45.78 (mL/min/1.73m2); Glucose 257 mg/dL (74-106); HDL Cholesterol 35 mg/dL (40-60); Potassium 4.5 mmol/L (3.5-5.1); Sodium 137 mmol/L (136-145); Total Protein 8.5 g/dL (6.4-8.2); Triglyceride 126 mg/dL (<150)
[2024-08-01 20:57] LABS: Hemoglobin A1C 8.5 % (<5.7)
== END 2024-08-01 16:01 | disposition home or self-care (01) ==
LOC: NCHCN 16:00
PROVIDERS: PCP Physician Assistant Medical; Visit Provider Physician Assistant Medical
DX: K76.0 Fatty (change of) liver, not elsewhere classified (principal); E11.9 Type 2 diabetes mellitus without complications
CPT/HCPCS: 80053; 80061; 83036; 85025

== ENCOUNTER 2024-10-24 15:36 | Outpatient (REF) | payer MEDICARE, SELFPAY ==
[2024-10-24 15:29] LABS: Abs Immature Grans 0.02 10^3/uL (0.0-0.06); Absolute Basophil Count 0.08 10^3/uL (0.0-0.2); Absolute Lymphocyte Count 2.19 10^3/uL (1.2-3.4); Absolute Monocyte Count 0.44 10^3/uL (0.1-0.8); Absolute Neutrophil Count 4.28 10^3/uL (1.2-6.7); Basophils % 1.1 %; Eosinophils % 2.8 %; HCT 45.4 % (40.0-50.0); HGB 14.7 g/dL (13.5-17.5); Immature Grans % 0.3 %; Lymphocytes % 30.4 %; MCH 29.9 pg (27.0-33.0); MCHC 32.4 % (32.0-36.0); MCV 93 fL (80-95); MPV 9.5 fL (8.0-11.0); Monocytes % 6.1 %; Neutrophils % 59.3 %; Platelet Count 211 10^3/uL (130-400); RBC 4.91 10^6/uL (4.36-5.78); RDW 13.5 % (11.8-14.1); RDW-SD 45.9 fL; WBC 7.21 10^3/uL (4.4-10.8)
[2024-10-24 15:46] LABS: ALT 22 U/L (16-63); AST 17 U/L (15-37); Albumin 3.3 g/dL (3.4-5.0); Alkaline Phosphatase 216 U/L (46-116); Anion Gap 9.3 mmol/L (3-11); BUN 20 mg/dL (7-18); Bilirubin, Total 0.61 mg/dL (0.2-1.0); CO2 24.7 mmol/L (21.0-32.0); CREATININE 1.9 mg/dL (0.70-1.30); Calcium 9.7 mg/dL (8.5-10.1); Chloride 101 mmol/L (98-107); Estimated GFR 37.25 (mL/min/1.73m2); Glucose 243 mg/dL (74-106); Potassium 3.8 mmol/L (3.5-5.1); Sodium 135 mmol/L (136-145); Total Protein 8.3 g/dL (6.4-8.2)
[2024-10-24 16:24] LABS: Hemoglobin A1C 9.1 % (<5.7)
[2024-10-24 16:25] LABS: Calculated LDL 65 mg/dL (<100); Cholesterol 121 mg/dL (<200); HDL Cholesterol 32 mg/dL (40-60); Triglyceride 121 mg/dL (<150)
== END 2024-10-24 15:37 | disposition home or self-care (01) ==
LOC: NCHCN 15:36
PROVIDERS: PCP Physician Assistant Medical; Visit Provider Physician Assistant Medical
DX: N18.4 Chronic kidney disease, stage 4 (severe) (principal); E11.9 Type 2 diabetes mellitus without complications
CPT/HCPCS: 80053; 80061; 83036; 85025

== ENCOUNTER 2024-12-04 13:51 | Outpatient (REF) | payer MEDICARE, SELFPAY ==
[2024-12-04 16:18] LABS: Microalb ug/mg Crea 44.9 ug/mg Cr
== END 2024-12-04 13:52 | disposition home or self-care (01) ==
LOC: NCHCN 13:51
PROVIDERS: PCP Physician Assistant Medical; Visit Provider Physician Assistant Medical
DX: N18.4 Chronic kidney disease, stage 4 (severe) (principal)
CPT/HCPCS: 82043; 82570

== ENCOUNTER 2025-05-22 19:14 | Emergency (ER) | payer MEDICARE, SELFPAY ==
[2025-05-22] VITALS (51 sets, daily range): BP systolic 58–162; BP diastolic 15–140; PULSE 74–130; RESP 8–30; TEMP 36.7–37.2; O2SAT 90–96
--- NOTE | 2025-05-22 19:15 | RT.EKG_ITS ---
APPROVED REPORT Exam: Resting ECG Reason for Exam: hypotension Patient Location: E HR:85 bpm ECG Measurements Heart Rate 85 AXIS UT 172 P 50 QRSd 123 QRS 58 QT 383 T 54 QTc 456 Conclusion Sinus rhythm...normal P axis, V-rate 60- 99 Nonspecific intraventricular conduction delay...QRSd >115mS, not LBBB/RBBB No Occlusion NV
--- NOTE | 2025-05-22 19:46 | W.ED.GENAD ---
Discharge Plan Disposition Patient Disposition: Admit to [facility] Condition: Fair Discharge Details Clinical Impression: Right lower lobe pulmonary infiltrate, KERRY (acute kidney injury), Weakness, Hyponatremia, Hyperglycemia Primary Care Provider: Hayes Cartagena ED Provider: Africa Zaragoza Home Meds and New Rx's Prescriptions: No Action acetaminophen 500 mg capsule 500 mg PO Q6H PRN lidocaine [Lidoderm] 5 % adhesive patch,medicated 1 patch topical DAILY Rx Instructions: leave on most painful area for up to 12 hrs furosemide [Lasix] 20 MG tablet See Rx Instructions .ROUTE .COMPLEX Rx Instructions: Take 1/2 tab PO BID naproxen 250 MG tablet 500 mg PO BID Ozempic 0.25 mg or 0.5 mg (2 mg/3 mL) pen injector See Rx Instructions .ROUTE .COMPLEX Patient Comments: Inject 1/4 mg subcutaneously once a week for 4 weeks, then increase to 0.5mg once weekly; TO REPLACE JARDIANCE Rx Instructions: Inject 1/4 mg subcutaneously once a week for 4 weeks, then increase to 0.5mg once weekly; TO REPLACE JARDIANCE celecoxib 100 mg capsule 100 mg PO BID PRN Patient Comments: TAKE 1 CAPSULE BY MOUTH TWICE DAILY NEEDED FOR PAIN cyclobenzaprine 5 mg tablet 5 mg PO TID PRN (Reason: muscle spasm) Qty: 20 0RF allopurinol 300 mg tablet 300 mg PO DAILY Patient Comments: TAKE 1 TABLET BY MOUTH EVERY DAY gabapentin 300 mg capsule 300 mg PO BID Patient Comments: TAKE 1 CAPSULE BY MOUTH TWICE DAILY insulin glargine [Lantus Solostar U-100 Insulin] 100 unit/mL (3 mL) insulin pen SUBCUT HPI <Africa Zaragoza NP - Last Filed: 05/23/25 00:04> General Mode of arrival: EMS. Date/Time Provider Initiated Documentation: 05/22/25 19:31. Limitations to Documentation: no limitations. Information obtained by: patient, EMS, RN notes reviewed and old records reviewed. HPI Narrative: 70[facility] his attempting to get out of his wheelchair to the bathroom earlier this evening. Patient unable to get up off floor. Patient denies hitting his head denies any headache he is alert and oriented x 3 upon arrival. He is disheveled and covered in stool. Informed by EMS that there was possible bed bugs on scene. Patient lives with another female who lives in and renting room out of his trailer. He did have soft blood pressure on arrival 96/49 and reported blood pressure of 86 systolic on arrival. He denies any chest pain, does report some shortness of breath, increased gas and loose stools. Past medical history of obesity, diabetes, obstructive sleep apnea, hyperlipidemia, hypertension and tobacco use. Surgical history includes salpingectomy knee surgery. Patient normally uses a wheelchair and a walker but has gradually become more weak. He does have some contusions to his left buttock, and is moving all 4 extremities on arrival active team. He is complaining of some shoulder pain. Related Data Home Medications ?Medication ?Instructions ?Recorded ?Confirmed furosemide 20 mg tablet (Lasix) See Rx Instructions .Route .COMPLEX 12/12/17 05/22/25 naproxen 250 mg tablet 500 mg PO BID 03/02/18 05/22/25 celecoxib 100 mg capsule 100 mg PO BID PRN 11/02/22 05/22/25 cyclobenzaprine 5 mg tablet 5 mg PO TID PRN muscle spasm #20 11/02/22 05/22/25 tabs semaglutide 0.25 mg or 0.5 mg (2 See Rx Instructions .Route .COMPLEX 11/02/22 05/22/25 mg/3 mL) subcutaneous pen injector (Ozempic) acetaminophen 500 mg capsule 500 mg PO Q6H PRN 03/02/23 05/22/25 lidocaine 5 % topical patch 1 patch topical DAILY 03/02/23 05/22/25 (Lidoderm) allopurinol 300 mg tablet 300 mg PO DAILY 05/22/25 05/22/25 gabapentin 300 mg capsule 300 mg PO BID 05/22/25 05/22/25 insulin glargine 100 unit/mL (3 unit subcut 05/22/25 mL) subcutaneous pen (Lantus Solostar U-100 Insulin) Previous Rx's ?Medication ?Instructions ?Recorded cyclobenzaprine 5 mg tablet 5 mg PO TID PRN muscle spasm #20 11/02/22 tabs Allergies Allergy/AdvReac Type Severity Reaction Status Date / Time environmental Allergy Mild Rhinitis Uncoded 05/22/25 19:12 General Stated Complaint: Fall/Non TraumaCriteria MIRIAM: 3 Review of Systems <Africa Zaragoza NP - Last Filed: 05/23/25 00:04> All systems reviewed & are unremarkable except as noted in HPI and below Constitutional Constitutional: Reports as per HPI, Denies headache(s) and Reports weakness ENT Ears, Nose, Mouth, and Throat: Denies dizziness and Denies headache(s) Gastrointestinal Gastrointestinal: Denies abdominal pain, Reports belching, Reports dyspepsia and Reports loose stools Musculoskeletal Musculoskeletal: Denies numbness Neurologic Neurologic: Reports as per HPI, Denies abnormal movements, Denies abnormal speech, Denies confusion, Denies dizziness, Denies headache(s), Denies localized weakness, Denies numbness and Reports weakness Psychiatric Psychiatric: Denies confusion Exam <Africa Zaragoza NP - Last Filed: 05/23/25 00:04> Narrative Exam Narrative: Constitutional: Alert and oriented x3. Appears stated age. Obese body habitus. Disheveled, covered in stool. Head: Normocephalic, no trauma. Eyes: Pupils PERRL, Red reflex noted, EOM's intact. Eyelids symmetrical without lesions, discharge, or swelling. ENT: Dry mucous membranes, poor dentition Chest: RRR, Normal S1, S2, distal pulses intact. Resp: Lungs clear to auscultation bilaterally, no wheezes, rales, or rhonchi. Abdomen: Soft, non-distended, Normoactive bowel sounds all 4 quads. Musculoskeletal: Unable to assess gait, Moves all 4 extremities. Skin: Bruising left buttock, mild redness to his coccyx and lower back. Capillary refill less than 2 sec. Neurologic: Cranial nerves II-XII intact. Alert and oriented x 3. Motor: No deficits noted. Sensory: Intact bilaterally all 4 extremities. Hematologic/Lymphatic: No ecchymosis, no lymphadenopathy. Course <Africa Zaragoza NP - Last Filed: 05/23/25 00:04> Vital Signs Vital signs: Vital Signs Temperature 36.7 C 05/22/25 19:04 Pulse 92 H 05/22/25 19:04 Respiratory Rate 20 05/22/25 19:04 Blood Pressure 96/49 L 05/22/25 19:04 Pulse Oximetry 92 05/22/25 19:04 Temperature 36.7 C 05/22/25 19:04 Temperature Source Oral 05/22/25 19:04 Pulse 92 H 05/22/25 19:04 Respiratory Rate 20 05/22/25 19:04 Blood Pressure 96/49 L 05/22/25 19:04 Blood Pressure Position Supine 05/22/25 19:04 Pulse Oximetry 92 05/22/25 19:04 Oxygen Delivery Method Room Air 05/22/25 19:04 Oxygen Flow Rate 0 05/22/25 19:04 Pain Level 8 05/22/25 19:09 Medical Decision Making <Africa Zaragoza NP - Last Filed: 05/23/25 00:04> 70-year-old male presents to the [place] after sliding his attempting to get out of his wheelchair to the bathroom earlier this evening. Patient unable to get up off floor. Patient denies hitting his head denies any headache he is alert and oriented x 3 upon arrival. He is disheveled and covered in stool. Informed by EMS that there was possible bed bugs on scene. Patient lives with another female who lives in and renting room out of his trailer. He did have soft blood pressure on arrival 96/49 and reported blood pressure of 86 systolic on arrival. He denies any chest pain, does report some shortness of breath, increased gas and loose stools. Past medical history of obesity, diabetes, obstructive sleep apnea, hyperlipidemia, hypertension and tobacco use. Surgical history includes salpingectomy knee surgery. Patient normally uses a wheelchair and a walker but has gradually become more weak. He does have some contusions to his left buttock, and is moving all 4 extremities on arrival active team. He is complaining of some shoulder pain. Workup for including EKG, chest x-ray, CBC BMP, and urine, and lipase, proBNP. 500 cc normal saline bolus ordered. At this time patient has no clinical presentation of CVA,, denies chest pain, does report mild productive cough, dry mucous membranes noted. Appears disheveled. CBC shows leukocytosis with a white blood cell count of 23.13, hemoglobin 13.4 hematocrit 41.7, absolute neutrophils 21.74, sodium low at 129, potassium 4.1 chloride 95 BUN 23 creatinine 2.9 GFR is 22, creatinine was 1.9 in October 2024. GFR 37 in October 2024. Glucose is elevated at 428. Bilirubin slightly elevated at 1.6, alk phos 249 albumin 2.5 lipase is within normal limits at 11. BNP is pending at this time. Recheck BGL after 500 cc normal saline bolus, consider giving her more fluids pending BNP results. Blood cultures x 2, lactate C. difficile added on labs. Differential diagnosis includes but not limited to pneumonia, UTI, acute kidney injury, dehydration, uncontrolled diabetes. 2125: Repeat BGL 331 after 500 cc normal saline bolus. Broad-spectrum antibiotics cefepime 2 g IV piggyback ordered for source of infection. Discussed plan of care for admission with patient who verbalizes understanding and is in agreement with the plan. With further discussion, patient reports that he does not want to be resuscitated does not want to be intubated and that he has filled out advance directives in the past. Patient also states he is not taking his insulin on the last couple of days. He is unsure of how many units he normally takes. Hospitalist Paged. [id number]: Spoke with Dr. Raya he recommends a POCUS to differentiate between Cardiac or pulmonary volume depletion vs overload and CT for source of infection, LR @ 150ml/hr ordered and Procalcitonin ordered. Urine culture ordered this was not reflexed, urinalysis shows trace ketones, large blood positive nitrites small bilirubin 3-5 RBC negative leukocyte many bacteria [address] chest abdomen pelvis without contrast ordered. 2332: Bedside POCUS attempted with Dr. Araujo to assist, unable to visualize IVC due to body habitus. Satisfactory cardiac images were obtained. No B-lines noted on bilateral lung exam. Lung sliding noted. Exam was somewhat limited due to body habitus. 2342: Discussed case with Dr. Araujo, pending admission and CT result. Will sign out patient. Patient is currently hypotensive with a blood pressure 78/23, Dr. Araujo at bedside signout you will plan on placing a central line. Medical Records Medical records reviewed: Yes I reviewed the patient's medical records. Imaging Data Radiologic Study: Imaging: X-Ray Radiologist's impression: Exam(s) XR PORTABLE CHEST AP EXAM: XR PORTABLE CHEST AP CLINICAL HISTORY: SOB, Weakness. TECHNIQUE: 2D digital imaging was performed. COMPARISON: No exams were available for comparison FINDINGS: Single AP portable view. Heart size is upper normal. The mediastinum is not widened. There there increased markings in the right lung base, probably infiltrate. In addition, there is a cutoff sign of the right mainstem bronchus just beyond the ruby. No pleural effusions. No pulmonary edema. IMPRESSION: Right lung base infiltrate. Also suggestion of cutoff sign of the right mainstem bronchus. This may indicate mass at this level. Recommend nonportable PA and lateral views when clinically possible and/or CT scan Lab Data Lab results reviewed: Yes I reviewed the patient's lab results. Labs: 05/22/25 20:42 Blood Blood Culture - Pending 05/22/25 20:42 Blood Blood Culture - Pending Laboratory Tests Range/Units 05/22/25 05/22/25 19:51 20:55 WBC (4.4-10.8) 10^3/uL 23.13 H RBC (4.36-5.78) 10^6/uL 4.66 Hgb (13.5-17.5) g/dL 13.4 L Hct (40.0-50.0) % 41.7 MCV (80-95) fL 90 MCH (27.0-33.0) pg 28.8 MCHC (32.0-36.0) % 32.1 RDW (11.8-14.1) % 14.5 H Plt Count (130-400) 10^3/uL 190 MPV (8.0-11.0) fL 9.7 Immature Gran % See Differential Neutrophils % % 92.0 Band Neutrophils % % 2 Lymphocytes % % 4.0 Monocytes % % 2.0 Eosinophils % % 0.0 Basophils % % 0.0 Nucleated RBC % (0.0-0.3) % 0.0 Absolute Neutrophils (1.2-6.7) 10^3/uL 21.74 H Absolute Lymphocytes (1.2-3.4) 10^3/uL 0.93 L Absolute Monocytes (0.1-0.8) 10^3/uL 0.46 Absolute Eosinophils (0.0-0.7) 10^3/uL 0.00 Absolute Basophils (0.0-0.2) 10^3/uL 0.00 RBC Morphology Normal VBG Lactate (<or=2.0) mmol/L 3.5 H* Sodium (136-145) mmol/L 129 L Potassium (3.5-5.1) mmol/L 4.1 Chloride (98-107) mmol/L 95 L Carbon Dioxide (21.0-32.0) mmol/L 24.3 Anion Gap (3-11) mmol/L 9.7 BUN (7-18) mg/dL 23 H Creatinine (0.70-1.30) mg/dL 2.9 H Est GFR (CKD-EPI 2020) (mL/min/1.73m2) 22.29 Glucose (74-106) mg/dL 428 H Calcium (8.5-10.1) mg/dL 8.6 Total Bilirubin (0.2-1.0) mg/dL 1.6 H AST (15-37) U/L 32 ALT (16-63) U/L 57 Alkaline Phosphatase (46-116) U/L 249 H NT-Pro-B Natriuret Pep (<300) pg/mL 2623 H Total Protein (6.4-8.2) g/dL 7.5 Albumin (3.4-5.0) g/dL 2.5 L Lipase (<78) U/L 11 Critical Care Time <Africa Zaragoza NP - Last Filed: 05/23/25 00:04> Critical Care Time Critical Care Time: Yes Total Critical Care Time: 60 Attestation: I spent greater than 35 minutes addressing this patient's acute life threatening illness. This time was spent engaged in actions directly related to the patient's care. Failure to initiate these interventions would have likely resulted in clinically significant or life threatening deterioration in the patients condition. PFSH <Africa Zaragoza NP - Last Filed: 05/23/25 00:04> All Active Problems (Updated 05/22/25 @ 22:16 by Africa Zaragoza NP) Right lower lobe pulmonary infiltrate (Acute) Hyperglycemia (Acute) Hyponatremia (Acute) Weakness (Acute) KERRY (acute kidney injury) (Acute) Acute buttock pain (Acute) Lumbosacral spondylosis without myelopathy (Acute) Medical History Obesity HTN (hypertension) Allergic rhinitis Chronic back pain Elevated serum creatinine Tobacco abuse Osteoarthritis Hyperlipidemia Seborrheic dermatitis Diabetes mellitus BEV (obstructive sleep apnea) Surgical History H/O left knee surgery Hx of appendectomy Social History Smoking/Tobacco Use Status: Former Tobacco Use Smoking risk assessment performed?: Yes Alcohol Intake: never Drug use: Never Substance use type: does not use Housing: house Do you feel safe at home: Yes Do you feel safe in your relationship?: Yes POCUS Exam (ED) <Ciro Araujo DO - Last Filed: 05/22/25 23:35> Limited Cardiac Exam DATE OF EXAM: 05/22/25 TIME OF EXAM: 23:34 PROVIDER THAT PERFORMED THE STUDY: Ciro Araujo IS THIS A REPEAT EXAM DURING THIS ENCOUNTER: no REASON FOR EXAM: Dyspnea VISUALIZED STRUCTURES: Left ventricle and Right ventricle VIEW OBTAINED: Parasternal long-axis PERTINENT FINDINGS/IMPRESSION: No apparent abnormalities and Pericardial effusion (trace) Exam complete Limited Thoracic Lung Exam DATE OF EXAM: 05/22/25 TIME OF EXAM: 23:35 PROVIDER THAT PERFORMED THE STUDY: Ciro Araujo IS THIS A REPEAT EXAM DURING THIS ENCOUNTER: No REASON FOR EXAM: Shortness ofBreath VISUALIZED STRUCTURES: right anterior and left anterior PERTINENT FINDINGS/IMPRESSION: No apparent abnormalities Exam complete
[2025-05-22] MEDS: Normal Saline 500 ML IV (19:53)
[2025-05-22 19:59] LABS: Abs Immature Grans 0.49 10^3/uL (0.0-0.06); HCT 41.7 % (40.0-50.0); HGB 13.4 g/dL (13.5-17.5); MCH 28.8 pg (27.0-33.0); MCHC 32.1 % (32.0-36.0); MCV 90 fL (80-95); MPV 9.7 fL (8.0-11.0); Platelet Count 190 10^3/uL (130-400); RBC 4.66 10^6/uL (4.36-5.78); RDW 14.5 % (11.8-14.1); RDW-SD 47.2 fL; WBC 23.13 10^3/uL (4.4-10.8)
[2025-05-22 20:11] LABS: RBC Morphology Normal
[2025-05-22 20:19] LABS: ALT 57 U/L (16-63); AST 32 U/L (15-37); Albumin 2.5 g/dL (3.4-5.0); Alkaline Phosphatase 249 U/L (46-116); Anion Gap 9.7 mmol/L (3-11); BUN 23 mg/dL (7-18); Bilirubin, Total 1.6 mg/dL (0.2-1.0); CO2 24.3 mmol/L (21.0-32.0); Calcium 8.6 mg/dL (8.5-10.1); Chloride 95 mmol/L (98-107); Estimated GFR 22.29 (mL/min/1.73m2); Glucose 428 mg/dL (74-106); Lipase 11 U/L (<78); Potassium 4.1 mmol/L (3.5-5.1); Sodium 129 mmol/L (136-145); Total Protein 7.5 g/dL (6.4-8.2)
[2025-05-22 21:08] LABS: NT-proBNP 2623 pg/mL (<300)
[2025-05-22] MEDS: CEFEPIME 2 GM in Normal Saline 100 ML IVPB (21:35)
[2025-05-22 21:42] LABS: Glucose 500 mg/dL (Negative)
--- NOTE | 2025-05-22 21:45 | DI.CT_ITS ---
Exam(s) CT CHEST/ABD/PEL WO EXAM: CT CHEST/ABD/PEL WO CLINICAL HISTORY: Fall, Weakness, SOB,. TECHNIQUE: Imaging Protocol: Axial computed tomography images with coronal and sagittal reformatted images were created and reviewed CONTRAST MATERIAL: Intravenous: none Oral: None COMPARISON: No exams were available for comparison FINDINGS: CHEST: Motion artifact evident LUNGS: Mild increased markings noted in the right lung base probably atelectatic. No confluent infiltrates and there are no pleural effusions. No significant focal findings in the trachea and mainstem bronchi.. MEDIASTINUM: No obvious hilar nor mediastinal adenopathy. Visualized thyroid unremarkable. CARDIAC: Heart size upper normal. No pericardial effusion. Diameter of the ascending thoracic aorta is upper normal. OSSEOUS: No significant osseous lesions.. ABDOMEN: There is no ascites. LIVER: There are no obvious focal hepatic lesions evident of this noninfused study. GALLBLADDER/BILIARY: Appears edematous. There is some gas in the gallbladder wall. CBD diameter is slightly prominent. No radiopaque calculi seen in the CBD. CBD is not dilated. PANCREAS: No evidence of obvious pancreatic mass nor dilatation of the pancreatic duct. SPLEEN: Spleen is not enlarged. No obvious intrasplenic lesions. ADRENALS: There are no significant adrenal masses. KIDNEYS: No calculi nor hydronephrosis. No obvious solid renal masses. No cysts evident. ABDOMINAL AORTA: Abdominal aorta is not enlarged. LYMPH NODES: There is no retroperitoneal nor para-aortic adenopathy. ABDOMINAL WALL/GI: No evidence of significant anterior abdominal wall nor inguinal hernia. No evidence of bowel obstruction. PELVIS: LYMPH NODES: There is no intrapelvic nor inguinal adenopathy. GI: No evidence of appendicitis.No evidence of sigmoid diverticulitis. URINARY BLADDER: No calculi nor obvious masses evident REPRODUCTIVE: Prostate size upper normal. Seminal vesicles unremarkable. OSSEOUS: Advanced degenerative changes both hips noted. No fractures evident. There is ankylosis of the sacroiliac joints evident. Mild indentation of both the superior and inferior endplates of T12 vertebral body noted, not acute appearance. No osseous lesions. IMPRESSION: 1. Cholelithiasis and evidence of acute cholecystitis. Is there appears to be possible air/gas in the gallbladder wall which brings the possibility of possible emphysematous cholecystitis. Surgical consultation recommended. 2. Other findings as above. Preliminary virtual Radiology report was reviewed Patient was apparently transfered to [facility] RADIATION DOSE DELIVERED: 1,750.47mGy.cm Total DLP DATA REPOSITORY: All CT scans at this facility are submitted to the National Radiology Data Registry (NRDR) Dose Index Registry (DIR) with the [employer] ([employer]). RADIATION OPTIMIZATION: All CT scans at this facility use at least one of these dose optimization techniques: automated exposure control; mA and/or kV adjustment per patient size (includes targeted exams where dose is matched to clinical indication); or iterative reconstruction.
--- NOTE | 2025-05-22 21:49 | DI.VRAD_ITS ---
PROCEDURE INFORMATION: Exam: XR Chest Exam date and time: 05/22/2025 8:18 PM Age: 70 years old Clinical indication: Other: SOB, weakness TECHNIQUE: Imaging protocol: Radiologic exam of the chest. Views: 1 view. COMPARISON: No relevant prior studies available. FINDINGS: Lungs: There is pulmonary venous congestion. There is diffuse interstitial edema. Underlying inflammatory or infectious process not excluded. Pleural spaces: There are no pleural effusions. No evidence of pneumothorax. Heart/Mediastinum: The heart is enlarged. There is prominence of the mediastinum. Bones/joints: The skeletal structures and soft tissues show no evidence of fracture or other acute processes. Soft tissues: The soft tissues of the extrathoracic region are unremarkable. Other findings: The patient's film is rotated to the right. IMPRESSION: Probable congestive heart failure. Underlying inflammatory or infectious process not excluded. Dictated and Authenticated by: Pro Banegas MD. Orderin Mila Leger MD
[2025-05-22 21:51] LABS: C & S Indicated? No; WBC 0-2 HPF (0-5)
[2025-05-22 22:17] LABS: COVID-19 PCR Negative (Negative); RSV PCR Negative (Negative)
[2025-05-22 22:19] LABS: Hemoglobin A1C 9.0 % (<5.7)
[2025-05-22 22:25] LABS: Procalcitonin 11.51 ng/mL
[2025-05-22] MEDS: Lactated Ringers 1,000 ML 200 ML IV (22:42)
[2025-05-22] MEDS: Acetaminophen 325 MG TAB 650 MG PO (22:50)
[2025-05-23] VITALS (23 sets, daily range): BP systolic 78–80; BP diastolic 23–31; PULSE 73–98; RESP 15–26; O2SAT 91–95
--- NOTE | 2025-05-23 | DI.CT_ITS ---
Exam(s) CT THORACIC LUMBAR SPINE REC EXAM: CT THORACIC LUMBAR SPINE REC CLINICAL HISTORY: Trauma, requested by [facility] [place] TECHNIQUE: COMPARISON: CR LUMBAR SPINE AP, LAT from 04/25/2008 CR LUMBAR SPINE AP, LAT from 10/02/2012 FINDINGS: THORACIC SPINAL COLUMN:There is multilevel calcification in the anterior longitudinal ligament and multilevel syndesmophytes. Suspect ankylosing spondylitis, as there is also element of ankylosis of the sacroiliac joints. There are no acute fractures evident although there is slight indentation of both the superior and inferior endplates of T11 vertebral body. No osseous lesions evident. Facet joints intact. LUMBOSACRAL SPINAL COLUMN: No evidence of fracture or listhesis nor significant disc space narrowing. There are syndesmophytes at L5-S1 level as well as L1-2 and L2-3. There is an element of ankle oasis of the sacroiliac joints. Facet joints unremarkable. No osseous lesions. IMPRESSION: There is mild indentation of both superior and inferior endplates of the T11 vertebral body. Possibly not acute. Other findings as above which probably indicate element of ankylosing spondylitis
--- NOTE | 2025-05-23 00:15 | DI.RAD_ITS ---
Exam(s) XR PORTABLE CHEST AP POST LINE EXAM: XR PORTABLE CHEST AP POST LINE CLINICAL HISTORY: Central line placement. TECHNIQUE: 2D digital imaging was performed. COMPARISON: CR,XR XR PORTABLE CHEST AP from 05/22/2025 FINDINGS: Single AP portable view. There has been interval placement of a right jugular central line. Its distal tip is in the upper right atrium. Mild cardiomegaly. Mediastinum is not widened. Left lung is clear. Slightly increased markings in the right lower lobe again noted. No obvious pleural effusions. No pulmonary edema. No pneumothorax. Lungs are clear. No infiltrates nor obvious pleural effusions. IMPRESSION: Possible mild infiltrate in the right lower lobe. Newly placed right jugular central line DATA REPOSITORY: RADIATION DOSE DELIVERED:
--- NOTE | 2025-05-23 00:35 | DI.VRAD_ITS ---
PROCEDURE INFORMATION: Exam: CT Chest Without Contrast; Diagnostic Exam date and time: 05/22/2025 10:10 PM Age: 70 years old Clinical indication: Injury or trauma; Generalized; Shortness of breath; Blunt trauma (contusions or hematomas); Injury date: 05/22/25; Fall, weakness, SOB, TECHNIQUE: Imaging protocol: Diagnostic computed tomography of the chest without contrast. 3D rendering (Not supervised by radiologist): MIP and/or 3D reconstructed images were created by the technologist. Radiation optimization: All CT scans at this facility use at least one of these dose optimization techniques: automated exposure control; mA and/or kV adjustment per patient size (includes targeted exams where dose is matched to clinical indication); or iterative reconstruction. Other technique: Motion degradation of multiple images limits fine evaluation of lung parenchyma. COMPARISON: CR XR PORTABLE CHEST AP 05/22/2025 8:18 PM FINDINGS: Lungs: No parenchymal consolidation. Right basilar subsegmental atelectasis. Pleural spaces: No pneumothorax or pleural effusion. Heart: Heart top-normal in size. No pericardial effusion or pneumopericardium. Diminished attenuation of cardiac chambers in comparison to myocardium which can be seen with anemia. Correlate clinically. Coronary arteries: Coronary artery calcification. Esophagus: Normal esophagus. No pneumomediastinum. Lymph nodes: No adenopathy. Vasculature: Ascending aorta dilated to 3.8 cm. Bones/joints: There are age indeterminate, prominent invaginations through both endplates of T12 vertebra. The spine demonstrates moderate degenerative changes at multiple levels. Healed fracture of right 11th rib. Soft tissues: Unremarkable. IMPRESSION: 1. Age-indeterminate, prominent invagination is through both endplates at T12 vertebra. Correlate clinically as to acuity. 2. Ascending aorta dilated to 3.8 cm. 3. Coronary artery disease. PROCEDURE INFORMATION: Exam: CT Abdomen And Pelvis Without Contrast Exam date and time: 05/22/2025 10:10 PM Age: 70 years old Clinical indication: Injury or trauma; Generalized; Shortness of breath; Blunt trauma (contusions or hematomas); Injury date: 05/22/25; Fall, weakness, SOB, TECHNIQUE: Imaging protocol: Computed tomography of the abdomen and pelvis without contrast. 3D rendering (Not supervised by radiologist): MIP and/or 3D reconstructed images were created by the technologist. Radiation optimization: All CT scans at this facility use at least one of these dose optimization techniques: automated exposure control; mA and/or kV adjustment per patient size (includes targeted exams where dose is matched to clinical indication); or iterative reconstruction. Other technique: Study is limited as lateral aspect of right mid and lower abdomen is not included in the imaged volume. COMPARISON: CR XR HIP PELVIS ADULT BL 06/16/2023 10:32 AM FINDINGS: Liver: Normal. No mass. Gallbladder and biliary ducts: 5 cm and smaller gallstones. Gallbladder is distended. There is wall thickening and pericholecystic fat stranding. No biliary ductal dilatation. Pancreas: Mild to moderate parenchymal atrophy. No ductal dilatation. Spleen: Spleen intact. Adrenal glands: Normal. No mass. Kidneys and ureters: Both kidneys appear intact. No hydronephrosis. There is mild bilateral perinephric fat stranding. Stomach and bowel: Visualized small bowel and colon are both normal in caliber there are a few, scattered colonic diverticula. Appendix: No evidence of appendicitis. Intraperitoneal space: Unremarkable. No free air. No significant fluid collection. Vasculature: Unremarkable. No abdominal aortic aneurysm. Lymph nodes: Unremarkable. No enlarged lymph nodes. Urinary bladder: Unremarkable as visualized. Reproductive: Unremarkable as visualized. Bones/joints: No acute fracture The spine demonstrates moderate degenerative changes at multiple levels. Advanced degenerative changes of both hip joints. Soft tissues: Unremarkable. IMPRESSION: 1. Limited study. 2. CT findings consistent with the presence of acute cholecystitis. Correlate clinically and with gallbladder ultrasound. 3. No acute fracture. Dictated and Authenticated by: Matt Singh MD. Orderin Mila Leger MD
--- NOTE | 2025-05-23 00:52 | DI.VRAD_ITS ---
PROCEDURE INFORMATION: Exam: XR Chest Exam date and time: 05/23/2025 12:36 AM Age: 70 years old Clinical indication: Device placement; Other: Central line placement TECHNIQUE: Imaging protocol: Radiologic exam of the chest. Views: 1 view. COMPARISON: CT CHEST/ABD/PEL WO 05/22/2025 10:10 PM FINDINGS: Tubes, catheters and devices: Tip of small bore right internal jugular central venous line is at level of superior cavoatrial junction. Lungs: Elevated right hemidiaphragm. Interstitial and pulmonary vascular prominence. No consolidation. Pleural spaces: Unremarkable. No pleural effusion. No pneumothorax. Heart/Mediastinum: Unremarkable. No cardiomegaly. Bones/joints: Degenerative changes. IMPRESSION: 1. No pneumothorax following placement of central line. 2. Pulmonary vascular congestion. Dictated and Authenticated by: Matt Singh MD. Orderin Mila Leger MD
[2025-05-23] MEDS: Norepinephrine in D5W 8 MG/250 ML BAG 9.375 MG IV (01:00)
[2025-05-23 01:22] LABS: Bilirubin, Direct 0.7 mg/dL (0.0-0.2)
[2025-05-23] MEDS: PIPERACILLIN/TAZO 4.5 GM in Normal Saline 100 ML IVPB (01:26)
[2025-05-23] MEDS: DOXYCYCLINE 100 MG in Normal Saline 100 ML IVPB (01:35)
--- NOTE | 2025-05-23 01:56 | ED.PROG_ITS ---
Date of service: 05/23/25 Time of Service: 03:47 Medical Decision Making Patient was signed out to me by my colleague Jhoana Cordoba. Please refer to HPI, physical exam, assessment and plan. At time of signout we are awaiting CT imaging. When I took over the case the patient's blood pressure took a notable drop towards hypotension and shock. Patient had already been given about 750 cc IV bolus. There was concern for CHF, and so additional fluids was cautiously given appropriately so. With the patient's notable persistent shock with systolic in the 60s, the patient was consented for central line, agreed and central line was placed without complication. Levophed was started at 5 mics per minute. He then became slightly hypertensive and he was transition down to 2 mics per minute. Art line was placed without complication. Broader spectrum antibiotics were added of vancomycin and Zosyn. CT scan results show evidence of acute cholecystitis. Because of the medical complexities of the patient and his critical status I did contact the surgeon and it was felt that this would not be the ideal surgical location for the patient, both intraoperatively with anesthesia and postoperatively. We did contact [facility] and discussed the case with Dr. Garcia, he agrees with the assessment and plan. Patient will be transferred for definitive surgical and ICU management. I have extensively reviewed the treatment plan with the patient. I have addressed all patient concerns at this time. I have also discussed the plan with the admitting physician and they agree with the current assessment and plan and have agreed to assume responsibility for the patient. All parties demonstrate verbal understan ding and agreement with our assessment and plan at this time. The documentation in this chart was dictated using [employer] dictation software. Please excuse any dictation errors. At time of transfer the patient was reassessed and continued to demonstrate No signs of acute respiratory distress requiring intubation,, blood pressure is stabilized on Levophed. [facility] has recommended 1 additional liter of IV fluids. Additionally of note, I did discuss the patient's CODE STATUS and the patient states that he definitely wants surgical intervention, and wants this acute episode managed. He is willing to undergo surgery. 2:20 AM We received bed confirmation to for the patient for transfer, and patient has been accepted at [facility]. We did contact [facility] and requested transfer. As the patient does not have a medical etiology necessitating emergent transport at this moment, [facility] has requested that they wait until 7 AM to transfer the patient secondary to the patient load that they had today. I did discuss with him that the patient is on Levophed and does have a surgically intervenable process, and that prompt transfer would be ideal. He requested that if the patient's clinical status worsens then to give them a call for emergent transfer. We did contact [facility], and they are unable to transfer at this time. We will reach out to [facility]. 3:46 AM [facility] transport has agreed to take the patient for transfer. Patient has left emergency department. FINDINGS: Tubes, catheters and devices: Tip of small bore right internal jugular central venous line is at level of superior cavoatrial junction. Lungs: Elevated right hemidiaphragm. Interstitial and pulmonary vascular prominence. No consolidation. Pleural spaces: Unremarkable. No pleural effusion. No pneumothorax. Heart/Mediastinum: Unremarkable. No cardiomegaly. Bones/joints: Degenerative changes. IMPRESSION: 1. No pneumothorax following placement of central line. 2. Pulmonary vascular congestion. Thank you for allowing us to participate in the care of your patient. Dictated and Authenticated by: Matt iSngh DO 05/23/2025 12:52 AM Eastern Time ([place] & [place]) FINDINGS: Lungs: No parenchymal consolidation. Right basilar subsegmental atelectasis. Pleural spaces: No pneumothorax or pleural effusion. Heart: Heart top-normal in size. No pericardial effusion or pneumopericardium. Diminished attenuation of cardiac chambers in comparison to myocardium which can be seen with anemia. Correlate clinically. Coronary arteries: Coronary artery calcification. Esophagus: Normal esophagus. No pneumomediastinum. Lymph nodes: No adenopathy. Vasculature: Ascending aorta dilated to 3.8 cm. Bones/joints: There are age indeterminate, prominent invaginations through both endplates of T12 vertebra. The spine demonstrates moderate degenerative changes at multiple levels. Healed fracture of right 11th rib. Soft tissues: Unremarkable. IMPRESSION: 1. Age-indeterminate, prominent invagination is through both endplates at T12 vertebra. Correlate clinically as to acuity. 2. Ascending aorta dilated to 3.8 cm. 3. Coronary artery disease. FINDINGS: Liver: Normal. No mass. Gallbladder and biliary ducts: 5 cm and smaller gallstones. Gallbladder is distended. There is wall thickening and pericholecystic fat stranding. No biliary ductal dilatation. Pancreas: Mild to moderate parenchymal atrophy. No ductal dilatation. Spleen: Spleen intact. Adrenal glands: Normal. No mass. Kidneys and ureters: Both kidneys appear intact. No hydronephrosis. There is mild bilateral perinephric fat stranding. Stomach and bowel: Visualized small bowel and colon are both normal in caliber there are a few, scattered colonic diverticula. Appendix: No evidence of appendicitis. Intraperitoneal space: Unremarkable. No free air. No significant fluid collection. Vasculature: Unremarkable. No abdominal aortic aneurysm. Lymph nodes: Unremarkable. No enlarged lymph nodes. Urinary bladder: Unremarkable as visualized. Reproductive: Unremarkable as visualized. Bones/joints: No acute fracture The spine demonstrates moderate degenerative changes at multiple levels. Advanced degenerative changes of both hip joints. Soft tissues: Unremarkable. IMPRESSION: 1. Limited study. 2. CT findings consistent with the presence of acute cholecystitis. Correlate clinically and with gallbladder ultrasound. 3. No acute fracture. Thank you for allowing us to participate in the care of your patient. Dictated and Authenticated by: Matt Singh DO 05/23/2025 12:34 AM Eastern Time ([place] & [place]) Procedure Arterial Line Date of Procedure: 05/23/25 Time of Procedure: 01:56 Provider that performed the procedure: Ciro Araujo Indication: BP Monitoring and Hypotension Patient Consented: Written and Emergent Case Standard Time Out Performed: Yes Sterility: Sterile Local Anesthetic: Lidocaine 1% Amount of anesthetic used(mL): 3 Laterality: Left Insertion Site: Radial Arterial Line Catheter: 20G Arrow Arterial Line Procedure: 1% Lidocaine to skin and subcutaneous tissue with 25g needle, Vessel accessed with needle, Vessel accessed with catheter over needle, Guidewire placed with ease, Catheter placed without resistance, Guidewire removed and Other (2 attempts were made) Ultrasound: Used/Image Saved Number of Attempts( see previous attempts in note section): 2 Dressing: Tegaderm Applied, Chlorhexidine Dressing and BioPatch Applied Procedure Tolerated: No Complications and Patient tolerated well Procedure Outcome: Successful Procedure Description Note: A time-out was completed verifying correct patient, procedure, site, positioning, and special equipment if applicable. Darshan?s test was performed to ensure adequate perfusion. The patient?s left wrist was prepped and draped in sterile fashion. 1% Lidocaine was used to anesthetize the area. The arterial line was introduced into the radial artery. The catheter was threaded over the guide wire and the needle was removed with appropriate pulsatile blood return. The catheter was then sutured in place to the skin and a sterile dressing applied. Perfusion to the extremity distal to the point of catheter insertion was checked and found to be adequate. Central Line Placement Date of Procedure: 05/23/25 Time of Procedure: 02:04 Provider that performed the procedure: Ciro Araujo Indication: Central venous access, Definitive access, Emergent access and Hypotension Patient Consented: Written Standard Time Out Performed: Yes Sterility: Sterile Local Anesthetic: Lidocaine 1% Amount of anesthetic used(mL): 5 Laterality: Right Insertion Site: Internal Jugular (IJ) Central Line Type: Triple Lumen Catheter Insertion Procedure: 1% Lidocaine to skin and subcutaneous tissue with 25g needle, Vessel accessed with needle, Vessel accessed with catheter over needle, catheter advanced, Guidewire placed with ease, Extension tubing fills with blood, then empties easily with gravity, Dermatotomy (skin dorita) made with scalpel, Dilator placed without resistance, Introducer/Catheter placed without resistance, Guidewire removed and Claves placed, blood withdrawn, ports flushed and clamped Ultrasound: Used/Image Saved Number of Attempts(see previous attempts in note section): 1 Post Procedure: good blood return, all ports aspirated, flushed, capped and sutured in place with nylon Post Procedure X-Ray: tip of catheter in good position Dressing: Tegaderm applied and BioPatch applied Procedure Outcome: Successful Critical Care Time Critical Care Time Critical Care Time: Yes Total Critical Care Time: 45 Attestation: Upon my evaluation, this patient had a high probability of imminent or life-thre atening deterioration, which required my direct attention, intervention, and personal management. I have personally provided 45 minutes of critical care time exclusive of time spent on separately billable procedures. Time includes review of laboratory data, radiology results, discussion with consultants, and monitoring for potential decompensation. Interventions were performed as documented. Discharge Plan Disposition Patient Disposition: Admit to [facility] Condition: Fair Discharge Details Clinical Impression: Right lower lobe pulmonary infiltrate, KERRY (acute kidney injury), Weakness, Hyponatremia, Hyperglycemia, Septic shock, Acute cholecystitis Primary Care Provider: Hayes Cartagena ED Provider: Ciro Araujo Home Meds and New Rx's Prescriptions: No Action acetaminophen 500 mg capsule 500 mg PO Q6H PRN lidocaine [Lidoderm] 5 % adhesive patch,medicated 1 patch topical DAILY Rx Instructions: leave on most painful area for up to 12 hrs furosemide [Lasix] 20 MG tablet See Rx Instructions .ROUTE .COMPLEX Rx Instructions: Take 1/2 tab PO BID naproxen 250 MG tablet 500 mg PO BID Ozempic 0.25 mg or 0.5 mg (2 mg/3 mL) pen injector See Rx Instructions .ROUTE .COMPLEX Patient Comments: Inject 1/4 mg subcutaneously once a week for 4 weeks, then increase to 0.5mg once weekly; TO REPLACE JARDIANCE Rx Instructions: Inject 1/4 mg subcutaneously once a week for 4 weeks, then increase to 0.5mg once weekly; TO REPLACE JARDIANCE celecoxib 100 mg capsule 100 mg PO BID PRN Patient Comments: TAKE 1 CAPSULE BY MOUTH TWICE DAILY NEEDED FOR PAIN cyclobenzaprine 5 mg tablet 5 mg PO TID PRN (Reason: muscle spasm) Qty: 20 0RF allopurinol 300 mg tablet 300 mg PO DAILY Patient Comments: TAKE 1 TABLET BY MOUTH EVERY DAY gabapentin 300 mg capsule 300 mg PO BID Patient Comments: TAKE 1 CAPSULE BY MOUTH TWICE DAILY insulin glargine [Lantus Solostar U-100 Insulin] 100 unit/mL (3 mL) insulin pen SUBCUT
[2025-05-23] MEDS: VANCOMYCIN 2,000 MG in Normal Saline 500 ML 333.3333 MG IVPB (02:05)
[2025-05-23] MEDS: Lactated Ringers 1,000 ML 1000 ML IV (02:32)
--- NOTE | 2025-05-23 23:45 | NUR.NOTE ---
Lab called to inform us that PT has a positive blood culture. PT is gram positive cocci in clusters. PT was transferred to [facility] [place] [facility]. report was given to Areli PAUL at [facility] [place] [facility] and report was faxed to [facility] Nursing Note:
--- NOTE | 2025-05-25 08:43 | NUR.NOTE ---
Access chart to determine antibiotic on transfer for urine culture. Report given to Dr. Duffy. Nursing Note:
--- NOTE | 2025-05-25 08:47 | ED.FU.B_ITS ---
Date of service: 05/25/25 Time of Service: 08:47 Follow Up Plan: Final culture of this patient's urine received in the emergency department 05/25, gram-positive jessica, mixed, 10,000-50,000 colonies. On review of this patient chart, the [place] was [place] [facility] [place] for septic shock due to cholecystitis. No intervenable findings on this culture, no action required. Areli Duffy MD
--- NOTE | 2025-05-28 07:41 | NUR.NOTE ---
Accessed Pt chart to see if Pt was prescribed an antibiotic. He was not. This was documented on the specimen report and given to the providers.
--- NOTE | 2025-05-28 07:45 | ED.FU.B_ITS ---
Date of service: 05/28/25 Time of Service: 07:45 Follow Up Plan: This patient had a blood culture result on my shift. His blood culture is growing Staphylococcus capitis. He had been transferred to [facility]. I have asked health refinery operator helper crude unit [employer] to fax these results to [facility].
--- NOTE | 2025-05-28 07:45 | W.ED.FU ---
Date of service: 05/28/25 Time of Service: 07:45 Follow Up Plan: This patient had a blood culture result on my shift. His blood culture is growing Staphylococcus capitis. He had been transferred to [place]. I have asked health spray unit feeder Winter to fax these results to [place].
== END 2025-05-23 03:25 | disposition short-term general hospital (02) ==
PROVIDERS: Registered Nurse Emergency; Emergency Provider Student in an Organized Health Care Education/Training Program; PCP Physician Assistant Medical
DX: R53.1 Weakness (principal); R73.9 Hyperglycemia, unspecified; E87.1 Hypo-osmolality and hyponatremia; N17.9 Acute kidney failure, unspecified; R91.8 Other nonspecific abnormal finding of lung field; A41.9 Sepsis, unspecified organism; R65.21 Severe sepsis with septic shock; K81.0 Acute cholecystitis
CPT/HCPCS: 00123; 36415; 36416; 36556; 71045; 71250; 76604; 76937; 80053; 82962; 83690; 84145; 87040; 87077; 87637; 93005; 93308; 96361; 96365; 96368; 99291; 74176; 81003; 81015; 82248; 83036; 83605; 83880; 85025; 87086; 87186; 93010; J0692; J2543; J3373

== ENCOUNTER 2025-06-11 18:28 | Outpatient (REF) | payer MEDICARE, SELFPAY ==
[2025-06-11 18:58] LABS: Abs Immature Grans 0.01 10^3/uL (0.0-0.06); HCT 35.9 % (40.0-50.0); HGB 11.3 g/dL (13.5-17.5); Immature Grans % 0.2 %; MCH 28.8 pg (27.0-33.0); MCHC 31.5 % (32.0-36.0); MCV 91 fL (80-95); MPV 11.3 fL (8.0-11.0); Platelet Count 189 10^3/uL (130-400); RBC 3.93 10^6/uL (4.36-5.78); RDW 15.0 % (11.8-14.1); RDW-SD 50.4 fL; WBC 6.58 10^3/uL (4.4-10.8)
[2025-06-11 19:16] LABS: Anion Gap 9.1 mmol/L (3-11); BUN 19 mg/dL (7-18); CO2 23.9 mmol/L (21.0-32.0); Calcium 8.3 mg/dL (8.5-10.1); Chloride 104 mmol/L (98-107); Estimated GFR 32.83 (mL/min/1.73m2); Glucose 287 mg/dL (74-106); Potassium 4.5 mmol/L (3.5-5.1); Sodium 137 mmol/L (136-145)
[2025-06-11 19:18] LABS: Hemoglobin A1C 8.4 % (<5.7)
== END 2025-06-11 18:29 | disposition home or self-care (01) ==
LOC: LBN 18:28
PROVIDERS: PCP Physician Assistant Medical; Visit Provider Nurse Practitioner Adult Health
DX: I13.10 Hypertensive heart and chronic kidney disease without heart failure, with stage 1 through stage 4 chronic kidney disease, or unspecified chronic kidney disease (principal)
CPT/HCPCS: 80048; 83036; 85025

== ENCOUNTER 2025-07-09 12:07 | Outpatient (REF) | payer MEDICARE, SELFPAY ==
[2025-07-09 15:22] LABS: HCT 37.5 % (40.0-50.0); HGB 11.7 g/dL (13.5-17.5); MCH 28.5 pg (27.0-33.0); MCHC 31.2 % (32.0-36.0); MCV 92 fL (80-95); MPV 10.2 fL (8.0-11.0); Platelet Count 195 10^3/uL (130-400); RBC 4.10 10^6/uL (4.36-5.78); RDW 15.9 % (11.8-14.1); RDW-SD 52.6 fL; WBC 6.88 10^3/uL (4.4-10.8)
[2025-07-09 15:36] LABS: AST 24 U/L (15-37); Albumin 3.1 g/dL (3.4-5.0); Alkaline Phosphatase 168 U/L (46-116); Anion Gap 11.2 mmol/L (3-11); BUN 17 mg/dL (7-18); Bilirubin, Total 0.6 mg/dL (0.2-1.0); CO2 20.8 mmol/L (21.0-32.0); Calcium 8.9 mg/dL (8.5-10.1); Chloride 103 mmol/L (98-107); Estimated GFR 53.40 (mL/min/1.73m2); Glucose 179 mg/dL (74-106); Potassium 4.3 mmol/L (3.5-5.1); Sodium 135 mmol/L (136-145); Total Protein 7.9 g/dL (6.4-8.2)
[2025-07-09 15:46] LABS: ALT 21 U/L (16-63)
[2025-07-11 13:26] LABS: Iron 47 ug/dL (65-175)
[2025-07-11 13:29] LABS: Ferritin 459 ng/mL (26-388)
== END 2025-07-09 12:08 | disposition home or self-care (01) ==
LOC: NCHCN 12:07
PROVIDERS: PCP Physician Assistant Medical; Visit Provider Physician Assistant Medical
DX: D64.9 Anemia, unspecified (principal); N18.9 Chronic kidney disease, unspecified
CPT/HCPCS: 80053; 85027; 82728; 83540

== ENCOUNTER 2025-08-06 19:01 | Outpatient (REF) | payer MEDICARE, SELFPAY ==
[2025-08-06 19:10] LABS: Vitamin B12 318 pg/mL (211-911)
[2025-08-06 19:11] LABS: Folate 10.2 ng/mL (>5.38)
== END 2025-08-06 19:02 | disposition home or self-care (01) ==
LOC: NCHCN 19:01
PROVIDERS: PCP Physician Assistant Medical; Visit Provider Physician Assistant Medical
DX: D64.9 Anemia, unspecified (principal); N18.9 Chronic kidney disease, unspecified
CPT/HCPCS: 82607; 82746